=== PATIENT | male | born 1955 | race Caucasian/White ===

== ENCOUNTER → 2017-03-12 | Outpatient (CLI) | payer BC, OTHER ==
[~2017-03-12] MED LIST: ALDACTONE25 MG PO; ASPIRIN EC81 M1 PO; ASPIRIN81 M2 PO; CARVEDILOL25 MG PO; CARVEDILOL6.25 MG PO; CIALIS20 MG PO; COENZYME Q1050 M1 PO; FUROSEMIDE 40 M40 M1 PO; HYDROCODON-ACE1 EAC8 PO; K-DUR 20 MEQ T20 MEQ PO; K-DUR10 MEQ PO; LISINOPRIL10 MG PO; LYRICA 50 MG50 MG PO; OCUVITE TABLET1 EAC1 PO; POTASSIUM20 PO; PREDNISONE 10 M10 M1 PO; PROAIR HFA8.5 GM IH; SPIRONOLACTONE25 M1 PO; SYMBICORT160 MCG/4. INH; XANAX 0.25 MG0.25 MG PO
== END ==
LOC: SLEEPLAB 14:48
DX: G47.33 Obstructive sleep apnea (adult) (pediatric) (principal)

== ENCOUNTER → 2019-09-30 | Outpatient (CLI) | payer BC, OTHER | LOC: SJCVC 13:14 | DX: R94.31 Abnormal electrocardiogram [ECG] [EKG] (principal); I42.9 Cardiomyopathy, unspecified; I25.10 Atherosclerotic heart disease of native coronary artery without angina pectoris; I10 Essential (primary) hypertension; E78.00 Pure hypercholesterolemia, unspecified; J45.909 Unspecified asthma, uncomplicated; Z79.82 Long term (current) use of aspirin; Z79.899 Other long term (current) drug therapy; Z82.49 Family history of ischemic heart disease and other diseases of the circulatory system ==

== ENCOUNTER → 2019-09-30 | Outpatient (CLI) | payer OTHER | LOC: CAT 13:57 | PROVIDERS: ATTEND Internal Medicine Cardiovascular Disease | DX: I25.10 Atherosclerotic heart disease of native coronary artery without angina pectoris (principal); E78.00 Pure hypercholesterolemia, unspecified ==

== ENCOUNTER → 2019-10-20 | Outpatient (CLI) | payer BC, OTHER | LOC: SJCVCIMAG 10:27 | PROVIDERS: ATTEND Internal Medicine Cardiovascular Disease | DX: I42.9 Cardiomyopathy, unspecified (principal); I25.10 Atherosclerotic heart disease of native coronary artery without angina pectoris; I10 Essential (primary) hypertension ==

== ENCOUNTER → 2021-01-05 | Outpatient (CLI) | payer BC, OTHER | LOC: SJCVCIMAG 08:23 | PROVIDERS: ATTEND Internal Medicine Cardiovascular Disease | DX: I42.9 Cardiomyopathy, unspecified (principal) ==